=== PATIENT | male | born 1995 | race Caucasian/White ===

== ENCOUNTER 2021-10-26 14:00 | Day surgery (SDC) | payer OTHER, SELFPAY ==
--- NOTE | 2021-10-26 14:15 | DI.RAD.S_ITS ---
PROCEDURE: XR HAND RT MIN 3V INDICATIONS: crush injury to third and fourth digits, log TECHNIQUE: 3 views of the hand(s) acquired. COMPARISON: None. FINDINGS: Bones: There is a fracture amputation at the distal 3rd and 4th digits. The fractures do not extend to the joint spaces. No other suspicious bony lesions. Soft tissues: Soft tissue amputation is present at the distal aspect of the 3rd and 4th digits. IMPRESSION: Fracture amputation of the distal aspect of the 3rd and 4th digits. Dictated by: Brunilda Warner M.D. on 10/26/2021 at 14:44 Approved by: Brunilda Warner M.D. on 10/26/2021 at 14:45
[2021-10-26 14:16] VITALS: BP 127/70; PULSE 86; RESP 14; TEMP 36.1; O2SAT 98; BMI 23.6
[2021-10-26] MEDS: KETOROLAC 30 MG/ML VIAL 15 MG IV (16:32)
[2021-10-26] MEDS: CEFAZOLIN 2 GM/20 ML SYRINGE IV (16:59)
[2021-10-26 17:34] LABS: COVID19 -Nasal RAPID POSITIVE (Negative)
--- NOTE | 2021-10-26 17:36 | PC.NURSE ---
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 Nails are still intact, but fleshy part of finger tips are gone. dsg in place and bleeding controlled with dsg.
[2021-10-26] MEDS: NICOTINE 21 MG PATCH TOP (18:28)
--- NOTE | 2021-10-26 19:23 | ED_ITS ---
HPI - Extremity Injury (Upper) <Sally Woods PA-C - Last Filed: 10/26/21 20:56> General Chief Complaint: Extremity Injury, Upper Stated Complaint: Rt hand smashed fingertips off Time Seen by Provider: 10/26/21 16:00 Source: patient Mode of arrival: Ambulatory History of Present Illness HPI narrative: Patient is a 26-year-old male presenting with a right hand injury after a log fell on his hand earlier today. He states that his hand was crushed between a metal surface and a log. He states distal lacerations on his 3rd and 4th digits. He reports a tetanus shot within the last 10 years. He reports no other health conditions, takes no medications daily, and has taken no pain medication today. He reports being a heavy cigarette smoker. Related Data Previous Rx's Medication Instructions Recorded cephalexin 500 mg capsule 500 mg PO QID #20 cap 10/26/21 oxycodone 5 mg tablet 5 mg PO Q4H PRN #30 tab 10/26/21 Allergies Allergy/AdvReac Type Severity Reaction Status Date / Time No Known Drug Allergies Allergy Verified 10/26/21 21:32 Review of Systems <Sally Woods PA-C - Last Filed: 10/26/21 20:56> Review of Systems Narrative: GENERAL: Denies fatigue, fever, or chills HEENT: Denies ear pain, vision changes, sore throat, or difficulty swallowing RESPIRATORY: Denies shortness of breath, cough, or wheezing CARDIOVASCULAR: Denies chest pain, pressure, palpitations, or edema GASTROINTESTINAL: Denies, nausea, vomiting, changes in bowel movements, or abdominal pain : Denies dysuria, frequency, hematuria, or flank pain MUSCULOSKELETAL: See HPI. SKIN: See HPI. NEUROLOGIC: Denies weakness, dizziness, headache, numbness, tingling or confusion PSYCHIATRIC: No concerning psychosocial issues. Patient History <Sally Woods PA-C - Last Filed: 10/26/21 20:56> Social History household members: none Smoking Status: Current every day smoker Smoking Status: Current every day smoker Substance Use Type: does not use Exam <Sally Woods PA-C - Last Filed: 10/26/21 20:56> Narrative Exam Narrative: GENERAL: 26 year old patient appears stated age. Well-developed patient, in moderate distress. HEAD: Atraumatic. Normocephalic. EYES: Pupils equal round and reactive. Extraocular motions intact. No scleral icterus. No injection or drainage. ENT: Nose without bleeding, purulent drainage. Throat without erythema, tonsillar hypertrophy or exudate. Airway patent. NECK: Trachea midline. Non tender CARDIOVASCULAR: Regular rate and rhythm without murmurs, gallops, or rubs. RESPIRATORY: Clear to auscultation. Breath sounds equal bilaterally. No wheezes, rales, or rhonchi. GASTROINTESTINAL: Abdomen soft, non-tender, nondistended. EXTREMITIES: No edema or joint tenderness. BACK: Nontender without deformity or crepitance. No flank tenderness. NEURO: AOx3. SKIN: Full amputation of distal 3rd and 4th digits of right hand, both fingernails are intact, no remaining skin flaps and minimal soft tissue left. No obvious bone is visualized. Initial Vital Signs Initial Vital Signs: Vital Signs Temperature 97.0 F L 10/26/21 14:16 Pulse Rate 86 10/26/21 14:16 Respiratory Rate 14 10/26/21 14:16 Blood Pressure 127/70 10/26/21 14:16 Pulse Oximetry 98 10/26/21 14:16 <Milagros Burt DO - Last Filed: 10/31/21 07:28> Initial Vital Signs Initial Vital Signs: Vital Signs Temperature 97.0 F L 10/26/21 14:16 Pulse Rate 86 10/26/21 14:16 Respiratory Rate 14 10/26/21 14:16 Blood Pressure 127/70 10/26/21 14:16 Pulse Oximetry 98 10/26/21 14:16 Course <Sally Woods PA-C - Last Filed: 10/26/21 20:56> Orders Ordered: Discontinued Medications Bupivacaine HCl (Bupivacaine 0.25% (Pf) Vial) 30 ml INJ NOW ONE Stop: 10/26/21 22:09 Last Admin: 10/26/21 22:09 Dose: 30 ml Documented by: BINDU Cefazolin Sodium (Cefazolin 1 Gm Vial) 2 gm IV NOW ONE Stop: 10/26/21 21:52 Last Admin: 10/26/21 21:52 Dose: 2 gm Documented by: JOI Cefazolin Sodium/Dextrose (Cefazolin 2 Gm/20 Ml Syringe) 2 gm IV NOW ONE Stop: 10/26/21 16:47 Last Admin: 10/26/21 16:59 Dose: 2 gm Documented by: ADE Diphtheria/Tetanus/Acell Pertussis (Tet,Diph,Pertuss(Acell),Vac/Pf 0.5 Ml Syringe) 0.5 ml IM .ONCE ONE Stop: 10/26/21 16:48 Last Admin: 10/26/21 17:19 Dose: Not Given Documented by: ADE Hydromorphone HCl (Hydromorphone 1 Mg Inj) 1 mg IM NOW ONE Stop: 10/26/21 16:04 Last Admin: 10/26/21 16:32 Dose: Not Given Documented by: KERRY Hydromorphone HCl (Hydromorphone 1 Mg Inj) 1 mg IV NOW ONE Stop: 10/26/21 16:18 Last Admin: 10/26/21 16:32 Dose: Not Given Documented by: KERRY Lactated Ringer's (Lactated Ringers) 1,000 mls @ 42 mls/hr IV CONT MARCIN Last Infusion: 10/26/21 23:03 Dose: 0 mls/hr Documented by: Admin: 10/26/21 21:32 Dose: 42 mls/hr Documented by: OLENA Ketorolac Tromethamine (Ketorolac 30 Mg/Ml Vial) 15 mg IV NOW ONE Stop: 10/26/21 16:25 Last Admin: 10/26/21 16:32 Dose: 15 mg Documented by: KERRY Nicotine (Nicotine 21 Mg Patch) 21 mg TOP NOW ONE Stop: 10/26/21 18:25 Last Admin: 10/26/21 18:28 Dose: 21 mg Documented by: LEONARD Ondansetron HCl (Ondansetron 4 Mg/2 Ml Inj) 4 mg IV NOW PRN PRN Reason: Nausea And Vomiting Last Admin: 10/26/21 23:05 Dose: 4 mg Documented by: OLENA Oxycodone HCl (Oxycodone Ir 5 Mg Tablet) 5 mg PO PACUNOW PRN PRN Reason: Mild or moderate pain Last Admin: 10/26/21 23:05 Dose: 5 mg Documented by: CGAY Consultations Consultation #1: Consult with Dr. Christian of orthopedic surgery and he agreed to admit the patient to surgery. Vital Signs Vital signs: Vital Signs - 8 hr 10/26/21 14:16 Temperature 97.0 F L Pulse Rate 86 Respiratory Rate 14 Blood Pressure 127/70 Pulse Oximetry 98 <Milagros Burt DO - Last Filed: 10/31/21 07:28> Orders Ordered: Discontinued Medications Bupivacaine HCl (Bupivacaine 0.25% (Pf) Vial) 30 ml INJ NOW ONE Stop: 10/26/21 22:09 Last Admin: 10/26/21 22:09 Dose: 30 ml Documented by: BINDU Cefazolin Sodium (Cefazolin 1 Gm Vial) 2 gm IV NOW ONE Stop: 10/26/21 21:52 Last Admin: 10/26/21 21:52 Dose: 2 gm Documented by: JOI Cefazolin Sodium/Dextrose (Cefazolin 2 Gm/20 Ml Syringe) 2 gm IV NOW ONE Stop: 10/26/21 16:47 Last Admin: 10/26/21 16:59 Dose: 2 gm Documented by: ADE Diphtheria/Tetanus/Acell Pertussis (Tet,Diph,Pertuss(Acell),Vac/Pf 0.5 Ml Syringe) 0.5 ml IM .ONCE ONE Stop: 10/26/21 16:48 Last Admin: 10/26/21 17:19 Dose: Not Given Documented by: ADE Hydromorphone HCl (Hydromorphone 1 Mg Inj) 1 mg IM NOW ONE Stop: 10/26/21 16:04 Last Admin: 10/26/21 16:32 Dose: Not Given Documented by: KERRY Hydromorphone HCl (Hydromorphone 1 Mg Inj) 1 mg IV NOW ONE Stop: 10/26/21 16:18 Last Admin: 10/26/21 16:32 Dose: Not Given Documented by: KERRY Lactated Ringer's (Lactated Ringers) 1,000 mls @ 42 mls/hr IV CONT MARCIN Last Infusion: 10/26/21 23:03 Dose: 0 mls/hr Documented by: Admin: 10/26/21 21:32 Dose: 42 mls/hr Documented by: OLENA Ketorolac Tromethamine (Ketorolac 30 Mg/Ml Vial) 15 mg IV NOW ONE Stop: 10/26/21 16:25 Last Admin: 10/26/21 16:32 Dose: 15 mg Documented by: KERRY Nicotine (Nicotine 21 Mg Patch) 21 mg TOP NOW ONE Stop: 10/26/21 18:25 Last Admin: 10/26/21 18:28 Dose: 21 mg Documented by: LEONARD Ondansetron HCl (Ondansetron 4 Mg/2 Ml Inj) 4 mg IV NOW PRN PRN Reason: Nausea And Vomiting Last Admin: 10/26/21 23:05 Dose: 4 mg Documented by: OLENA Oxycodone HCl (Oxycodone Ir 5 Mg Tablet) 5 mg PO PACUNOW PRN PRN Reason: Mild or moderate pain Last Admin: 10/26/21 23:05 Dose: 5 mg Documented by: OLENA Vital Signs Vital signs: Vital Signs - 8 hr 10/26/21 14:16 Temperature 97.0 F L Pulse Rate 86 Respiratory Rate 14 Blood Pressure 127/70 Pulse Oximetry 98 MDM - Extremity Injury (Upper) <Sally Woods PA-C - Last Filed: 10/26/21 20:56> Lab Data Labs: Lab Results 10/26/21 Range/Units 17:06 SARS-CoV-2 (PCR) Positive H (Negative) Imaging Data Extremity x-ray #1: Radiologist's Impression: [place] [address] XRay Report Signed Patient: Yahaira Benton MR#: [id number] : 1995 Acct:[id number] Age/Sex: 26 / M Date of Service: 10/26/21 Loc: ED Accession Number: [id number] ?? Procedure: XR hand RT min 3V Ordering Provider: Milagros Burt D.O. PROCEDURE:? XR HAND RT MIN 3V ? INDICATIONS:? crush injury to third and fourth digits, log ? TECHNIQUE:? 3 views of the hand(s) acquired.? ? COMPARISON:? None. ? FINDINGS:? ? Bones:? There is a fracture amputation at the distal 3rd and 4th digits.? The fractures do not extend to the joint spaces.? No other suspicious bony lesions. ? Soft tissues:? Soft tissue amputation is present at the distal aspect of the 3rd and 4th digits. ? ? IMPRESSION:? Fracture amputation of the distal aspect of the 3rd and 4th digits. ? ? Dictated by: Brunilda Warner M.D. on 10/26/2021 at 14:44 ? ? Approved by: Brunilda Warner M.D. on 10/26/2021 at 14:45 ? [facility] Narrative Medical decision making narrative: Patient is a 26-year-old man presenting after a crush injury of his right hand. He reports that his right hand was crushed between a metal surface and a log at work. X-Ray reveals a fracture amputation of the distal aspect of the 3rd and 4th digits. Upon physical exam, amputation is to bone with no soft tissue, no skin flaps, and we are unable to close these injuries in the ER. Dr. Christian of orthopedic surgery was consulted and agreed to perform surgery on this patient tonight. He was given 15 mg of ketorolac and 2 g of cefazolin. He declines any narcotics for pain management. He has been NPO as of 2:00 p.m. today. His COVID test came back positive. <Milagros Burt, DO - Last Filed: 10/31/21 07:28> Lab Data Labs: Lab Results 10/26/21 Range/Units 17:06 SARS-CoV-2 (PCR) Positive H (Negative) [facility] Narrative Medical decision making narrative: Patient is a 26-year-old man presenting after a crush injury of his right hand. He reports that his right hand was crushed between a metal surface and a log at work. X-Ray reveals a fracture amputation of the distal aspect of the 3rd and 4th digits. Upon physical exam, amputation is to bone with no soft tissue, no skin flaps, and we are unable to close these injuries in the ER. Dr. Christian of orthopedic surgery was consulted and agreed to perform surgery on this patient tonight. He was given 15 mg of ketorolac and 2 g of cefazolin. Patient's tetanus is up-to-date. He declines any narcotics for pain management. He has been NPO as of 2:00 p.m. today. His COVID test came back positive. Discharge Plan Departure Patient Disposition: Admitted to Surgery Clinical Impression: Crush fracture Amputation finger Qualifiers: Encounter type: initial encounter Qualified Code(s): S68.119A - Complete traumatic metacarpophalangeal amputation of unspecified finger, initial encounter Admit Date/Time: 10/26/21 20:46 Admit Provider: Anand Mcmillan <Milagros Burt DO - Last Filed: 10/31/21 07:28> Cosign ED Attending Steffiature Attestation: Patient seen and evaluated independently by myself as well. Patient on examination has injuries to the 3Rd and 4th digits of the right hand. Patient has amputation of the distal tips of the fingers majority soft tissue the fingernails appear majority intact with soft tissue loss has an avulsion type injury. Patient has sensation in the remaining portion of the finger. The distal joint appears to be intact a dirty of injury distal to this. Patient does not have any other injuries to the hand. 2+ radial pulse. Patient cap refills intact throughout the rest of the finger. Patient had IV placed, given IV antibiotics, Toradol patient defers any narcotics initially. Orthopedic consultation and plan for OR today. Patient was COVID swabbed for preoperative clearance and is positive.
--- NOTE | 2021-10-26 20:14 | PM.HP.1 ---
History of Present Illness History of Present Illness Date Patient Seen: 10/26/21 Time Patient Seen: 20:30 Date of Onset of Symptoms: 10/26/21 Chief complaint: Rt hand smashed fingertips off Narrative: Mr. Benton is a 26 yo M who sustained a crush injury to his right hand while working. His right hand's long and ring finger sustained distal finger amputation of the tips. The crush injury was between metal and wood surface. He was brought into the emergency department after the injury. ER staff determined his finger wound was too complicated to be treated in the ED. Orthopedic service was consulted. Patient History Family & Social History Tobacco & Substance use: Smoking Status Current every day smoker Substance Use Type does not use Meds Home Medications and Allergies Home Medications Medication Instructions Recorded Confirmed Type cephalexin 500 mg capsule 500 mg PO QID #20 cap 10/26/21 Rx oxycodone 5 mg tablet 5 mg PO Q4H PRN #30 tab 10/26/21 Rx Review of Systems Review of Systems ROS: Yes All systems reviewed with the patient and are negative except as otherwise documented Exam Vital Signs (past 8 hours): - 10/26/21 14:16 Temperature 97.0 F L Pulse Rate 86 Respiratory Rate 14 Blood Pressure 127/70 Pulse Oximetry 98 Oxygen Delivery Method Room Air Extrem Other: Right long and ring finger with distal phalanx partial amputation. The loss of tissue is more palmar. There is exposed bone and tendons in the wound. There is active arterial bleeding. There is clotted blood at the exposed wounds in both fingers. Rest of the fingers are well perfused. There are no other wounds. Psych Appearance: grossly normal Objective Labs Labs: Laboratory Results - last 24 hr 10/26/21 17:06 SARS-CoV-2 (PCR) Positive H Assessment & Plan Assessment & Plan narrative: Mr. Benton is a 26 yo M with right long and ring finger partial amputation of the distal phalanx with exposed fractured bone and tendon from the crush injury. The distal tips are non-viable due to the crush nature of the injury as well as the poor residual function even attempted replant is performed. After informed consent was obtain, patient is being taken to OR emergently for irrigation and debridement, completion of amputation and closure of his finger wounds. Risks for surgery include but not limited to bleeding, pain, neuropathy, need for additional surgery, finger nail loss or malformation, stiffness, loss of range of motion, decreased hand/finger function. Patient understands. Time Spent With Patient Critical Care time: I spent a total of [] minutes of critical care time on this patient's care today; this time is exclusive of procedural time.
--- NOTE | 2021-10-26 20:20 | PC.NURSE ---
resting on stretcher waiting for surgery
--- NOTE | 2021-10-26 20:24 | PM.OP.1 ---
Operative Date/Time/Diagnoses Date of procedure: 10/26/21 Time of procedure: 21:00 Pre-op diagnosis: 1. Right long and ring finger distal phalanx partial traumatic amputation 2. Open fracture of distal phalanx of right long and ring finger Post-op diagnosis: same Procedure & Clinicians Procedure: 1. Irrigation and debridement of skin, muscle and bone of right long and ring finger 2. Completion of partial amputation of distal phalanx with neurectomies of right long and ring finger Same procedure as scheduled: Yes Indications: Mr. Benton is here for emergent right hand long and ring finger irrigation and debrident and wound closure due to a traumatic crush injury. He has exposed bone fragments in both fingers with open fracture. Informed consent was obtained and he is taken to the OR for consented surgery. Surgeon: Anand Mcmillan Click Yes if Unassisted: Yes Anesthesia Type: General Operative Notes Closure Type: primary Specimen(s): none sent Estimated Blood Loss (mL): 5 Blood products transfused: none Procedure in detail: Informed consent was obtained in the preop area. Patient's surgical site was marked. Mr. Benton was then taken to the OR. Regional block and IV sedation was given. Time out was performed. Tourniquet was placed on patient's right upper arm. Patient's right hand was prepped and draped in the sterile fashion. Digital block was performed using 0.25% Marcaine in both the right long and ring finger. The wound was then inspected. Unhealthy appearing skin edges was resected using a scalpel until healthy skin edges was identified. The fractured distal phalanx was debrided using a Leksell rongeur until all loose fragments of bone was removed from the wound as well as enough bone resection was performed to allow proper soft tissue closure over the distal tip without significant soft tissue tension to allow proper healing. Neurectomies along with ligation of blood vessels in both digits was performed in order to prevent future bleeding a neuropathy post amputation. Prior to wound closure, copious amount of sterile normal saline was used to irrigate the wound of both fingers. 4-0 nylon suture was used to close the wound by preserving as much of healthy palmar tissue as possible and flipping the palmar tissue dorsally over the distal portion of the distal phalanx. Prior to closure care was taken to make sure there was no significant soft tissue tension by resecting sufficient amount of distal phalanx bone. Both finger wounds were closed without any difficulty. Xeroform and gauze was placed over the wound after the closure was completed. A splint was placed over the right long and ring fingers in order to protect the fresh repaired soft tissue as well as bone. Patient was then taken to the recovery room stable condition. Patient will be discharged to home after meeting discharge criteria. Patient can be discharged tomorrow with oral antibiotics for 5 days for prophylaxis. Complications: none Post-operative Condition: stable Disposition: PACU Plan for aftercare: Discharge to home
[2021-10-26 21:16] VITALS: BMI 23.6
--- NOTE | 2021-10-26 21:31 | SUR.HOLD ---
Block start time [0920 ] . Monitoring initiated and maintained throughout procedure. Oxygen and medications given per anesthesiologist instructions. Patient remained stable throughout procedure, no adverse reactions noted. Block end time [0931].
[2021-10-26] MEDS: LACTATED RINGERS 1,000 ML 42 ML IV (21:32)
[2021-10-26] MEDS: CEFAZOLIN 1 GM VIAL 2 GM IV (21:52)
--- NOTE | 2021-10-26 22:02 | SUR.OPER ---
Supine on padded OR bed, head on pillow, left arm secured on padded arm boards at <90 degrees abduction, right arm on extended arm board and in control of the surgeon, legs uncrossed, safety belt at thigh, tape over blanket over lower legs.
[2021-10-26] MEDS: BUPIVACAINE 0.25% (PF) VIAL 30 ML INJ (22:09)
[2021-10-26 22:54] VITALS: BP 129/77; PULSE 78; RESP 11; TEMP 36.2; O2SAT 96
[2021-10-26 22:59] VITALS: BP 125/81; PULSE 70; RESP 16; O2SAT 96
[2021-10-26] MEDS: ONDANSETRON 4 MG/2 ML INJ IV (23:05)
[2021-10-26] MEDS: OXYCODONE IR 5 MG TABLET PO (23:05)
[2021-10-26 23:09] VITALS: BP 129/82; PULSE 69; RESP 12; O2SAT 98
== END 2021-10-26 23:30 | disposition home or self-care (01) ==
LOC: ED 19:55 → AC 20:56 → OR 11-01 08:12
PROVIDERS: Emergency Medicine; Emergency Provider Physician Assistant; Referring Provider Emergency Medicine; Visit Provider Orthopaedic Surgery Orthopaedic Surgery of the Spine
PROC: (CPT 26952; principal; 2021-10-26 20:00)
DX: S68.622A Partial traumatic transphalangeal amputation of right middle finger, initial encounter (principal); S68.624A Partial traumatic transphalangeal amputation of right ring finger, initial encounter; W20.8XXA Other cause of strike by thrown, projected or falling object, initial encounter; Y93.H3 Activity, building and construction; Y92.89 Other specified places as the place of occurrence of the external cause; Y99.0 Civilian activity done for income or pay; F17.210 Nicotine dependence, cigarettes, uncomplicated; U07.1 COVID-19
CPT/HCPCS: 26952; 64450; 73130; 87635; 96374; 96375; 99284; C9803; J0690; J1100; J1885; J2250; J2405; J2704; J3010

== ENCOUNTER 2021-11-14 14:00 | Day surgery (SDC) | payer OTHER, SELFPAY ==
[2021-11-14 14:40] VITALS: BMI 40.3
[2021-11-14 14:47] VITALS: BP 121/68; PULSE 92; RESP 97; TEMP 36.9; O2SAT 97
--- NOTE | 2021-11-14 14:50 | PM.PREOP ---
Pre-operative Note COVID-19 COVID-19 status: Negative Result date/Date tested (Pos, Neg/Pending): 11/13/21 Criteria for continued procedure: Expected advancement of disease process, Possibility delay results in more complex future surgery or treatment, Increased loss of function, Continuing or worsening of significant or severe pain, Deterioration of the patient's condition or overall health and Delay expected to result in less-positive ultimate med/surg outcome Interval Note History & Physical reviewed/Exam performed by Physician: Yes Changes to H&P: No
[2021-11-14 15:30] LABS: COVID19 -Nasal RAPID Negative (Negative)
[2021-11-14 15:40] VITALS: BP 125/78; PULSE 97; RESP 16; O2SAT 98
--- NOTE | 2021-11-14 15:45 | PM.OP.1 ---
Operative Date/Time/Diagnoses Date of procedure: 11/14/21 Time of procedure: 15:00 Pre-op diagnosis: 1. right long and ring finger wound drainage 2. S/p traumatic amputation of right long and ring finger Post-op diagnosis: same Procedure & Clinicians Procedure: 1. Right long and ring finger irrigation and debridement of skin and subcutaneous tissue Same procedure as scheduled: Yes Indications: Mr. Benton is here after a I&D after traumatic amputation of his right long and ring finger. He was seen in clinic and he was found to some area of maceration/necrosis at the skin edges of the finger tips after closure. He was scheduled for urgent I&D of his right long and ring finger. Surgeon: Anand Mcmillan Click Yes if Unassisted: Yes Anesthesia Type: General Operative Notes Closure Type: primary Specimen(s): none sent Estimated Blood Loss (mL): 0 Blood products transfused: none Procedure in detail: After informed consent was obtained and place in the chart, he was taken to block room in the PACU. Digital block was performed after the fingers were prep'ed with betadyne using 1/2 % marcaine. Small sutures and pickup was used to debride skin edges and subcutaneous tissue by removing any unhealthy appearing tissue at the skin edge. There is no abscess, no erythema on inspection. Sutures were removed from both fingers without difficulty. Wound was dressed with xeroform and gauze. Patient was instructed to do daily hand wash with soap and water. I will f/u with him in 1 week for wound check. Complications: none Post-operative Condition: stable Disposition: PACU Plan for aftercare: Discharge to home
--- NOTE | 2021-11-14 15:58 | SUR.PREOP ---
11/14/21-1445 admission to preop completed. Patinet remains calm and watching show on phone. soaking rt hand digit in NS. Plan: procedure not surgical intervention. Awaiting Dr. Mcmillan. 1500-3pm-Dr Mcmillan at bedside,consented patient. Moved into Block room.NUTRITION SERVICES ASSOCIATEBranden at bedside to assist/gather instruments for patinet procedure. 1508-Procedure at bedside initiated by MD. Local given. MD aware if sedated or needed to go to OR, no available ride. 1540-Procedure completed. wound care instructions completed by MD,transcribed to Discharge instruction format for patient. vss. to restroom to change. states feeling fine. 1555-Supplies for home care daily dressing changes given to pt. Patient home care instructions completed. 1600-Discharged ambulatory with all belongings,paperwork, and supplies. Dr Mcmillan's office to call for followup. Refused offers for po fluids.
--- NOTE | 2021-11-19 12:24 | SUR.OPER ---
Patients procedure done in the preoperative area due to no available operating rooms. See preoperative charting.
== END 2021-11-14 16:00 | disposition home or self-care (01) ==
PROVIDERS: Referring Provider Orthopaedic Surgery Orthopaedic Surgery of the Spine; Visit Provider Orthopaedic Surgery Orthopaedic Surgery of the Spine
PROC: (CPT 11042; principal; 2021-11-14 16:30)
DX: L76.82 Other postprocedural complications of skin and subcutaneous tissue (principal); Z20.822 Contact with and (suspected) exposure to COVID-19
CPT/HCPCS: 11042; 87635; C9803